=== PATIENT | male | born 1970 | race Caucasian/White ===

== ENCOUNTER → 2016-04-13 10:42 | Outpatient (CLI) | payer BC ==
[~2016-04-13 10:42] MED LIST: HYDROCODONE-APA1 TAB PO; IMITREX50 MG PO; LEXAPRO10 MG PO
[2016-05-11 06:10] VITALS: BMI 24.2
== END | disposition home or self-care (01) ==
LOC: D.NM 10:42
DX: K82.8 Other specified diseases of gallbladder (principal)

== ENCOUNTER 2016-05-11 05:08 | Day surgery (SDC) | payer BC ==
[~2016-05-11] VITALS: Ht 167.6 cm; Wt 68.0 kg
[~2016-05-11 05:08] MED LIST changes: -HYDROCODONE-APA1 TAB PO
[2016-05-11 06:10] VITALS: BP 118/72; Ht 167.6 cm; Wt 68.0 kg
[2016-05-11 06:46] LABS: BASOPHILS 0.5 % (0.0-2.0); EOSINOPHILS 2.3 % (0-7); HEMATOCRIT 44.9 % (42.0-54.0); HEMOGLOBIN 15.2 g/dL (13.5-17.5); IMMATURE GRANULOCYTES 0.2 % (0-5); LYMPHOCYTES 26.4 % (15-50); MCH 30.3 pg (26.0-34.0); MCHC 33.9 g/dL (31.0-37.0); MCV 89.6 fL (80.0-100.0); MEAN PLATELET VOLUME 10.1 fL (7.4-10.4); MONOCYTES 7.6 % (2-11); PLATELET COUNT 207 10x3/uL (130-400); RBC 5.01 10x6/uL (4.20-6.10); RDW 12.9 % (11.5-14.5); WBC 5.5 10x3/uL (4.8-10.8)
[2016-05-11 07:03] LABS: CALC OSMOLALITY 285 mosm/kg (275-300); CALCIUM 8.2 mg/dL (8.5-10.1); CARBON DIOXIDE 27.8 mmol/L (21.0-32.0); CHLORIDE - SERUM 107 mmol/L (98-107); GLUCOSE 101 mg/dL (74-106); POTASSIUM - SERUM 3.6 mmol/L (3.5-5.1); SODIUM 143 mmol/L (136-145); UREA NITROGEN 14 mg/dL (7-18); eGFR NON AFRICAN AMERICAN 85 mL/min (90-120)
[2016-05-11] MEDS ORDERED: HYDROCODONE-APA1 TAB PO (08:52)
--- NOTE | 2016-05-25 13:21 | OP ---
PATIENT NAME: COLT CERON III MEDICAL RECORD: [id number] :70 LOCATION:[facility] ADMISSION DATE: SURGEON: DAVY GUERRA MD DATE OF OPERATION: 05/11/2016 PREOPERATIVE DIAGNOSIS: Biliary dyskinesia. POSTOPERATIVE DIAGNOSIS: Biliary dyskinesia. PROCEDURE: Laparoscopic cholecystectomy. SURGEON: Davy Guerra MD. REPORT OF PROCEDURE: The patient's abdomen was prepped and draped in sterile fashion. A cutdown was made on the superior aspect of the umbilicus, 0 Vicryls were placed in the fascia bilaterally and the fascia was incised with 15-blade. I then bluntly entered the peritoneal cavity and placed a 12-mm Bk port. When we inserted the camera, we could see that we were underneath the omentum. There was no sign of any injury to bowel or surrounding structures. I was able to get around the omentum and place my epigastric and my two right subcostal trocars. With these in place, I performed a lysis of adhesions of the omentum and small bowel off of the anterior abdominal wall until my 12-mm trocar had a direct path to the patient's gallbladder. Once this was done, then the gallbladder was grasped and elevated. There is some [id number] inflammatory changes and the fatty adhesions were teased down with blunt dissection. The cystic artery and cystic duct were dissected free and these were clipped proximally and distally and ligated in standard fashion. The gallbladder was then taken off the liver bed using electrocautery and placed into the right upper quadrant. Any bleeding from the liver bed was then treated with electrocautery. At this point, the ports and insufflation were then removed and the gallbladder was taken out through the umbilicus. The umbilical fascia was closed with interrupted 0 Vicryls times 3. The wounds were irrigated out with normal saline and infused with 10 mL of 0.25% Marcaine with epinephrine. The skin incisions were all closed with subcutaneous 5-0 Monocryl and dressed appropriately. COMPLICATIONS: None. CONDITION: Stable. ANESTHESIA: General endotracheal and local. BLOOD LOSS: Minimal. TRANSINT:[id number] Voice Confirmation ID: [id number] DOCUMENT ID: [id number] DAVY GUERRA MD at 1321 CC: HEIDY HAMMOND MD [id number] DICTATION DATE: 05/11/16 0856 [employer] WORKER: 05/11/16 1456 [facility] 05/11/16 [id number] [place] [address]
== END 2016-05-11 11:40 | disposition home or self-care (01) ==
LOC: D.OPS 05:08 → D.PAN 12:00
PROVIDERS: Surgery
DX: K82.8 Other specified diseases of gallbladder (principal); K21.9 Gastro-esophageal reflux disease without esophagitis